=== PATIENT | male | born 1955 | race American Indian/Alaskan Native ===

== ENCOUNTER 2016-12-22 13:57 | Emergency (ER) | payer MEDICAID ==
[2016-12-22 14:17] VITALS: BMI 34.8
[2016-12-22 14:34] VITALS: RESP 18; O2SAT 98
--- NOTE | 2016-12-22 14:36 | C.PDOC ---
History Of Present Illness 61 y/o M p/w dizziness last night. Patient states dizziness is like a spinning sensation. Occurred last night whenever patient rotated his head to the L. Resolved if turned head the other way. Denies headache, vomiting, trauma, vision change, numbness, weakness. Symptoms are now gone as of 4 hours ago and have not returned. Time Seen by Provider: 12/22/16 14:04 Chief Complaint (Nursing): Dizziness/Lightheaded Past Medical History Vital Signs: Last Vital Signs Temp 98.3 F 12/22/16 14:24 Pulse 63 12/22/16 14:24 Resp 18 12/22/16 14:24 BP 111/71 12/22/16 14:24 Pulse Ox 98 12/22/16 14:24 - Medical History PMH: Benign Prostatic Hyperplasia, Cardia Arrhythmia, Colonic Polyps, Depression , Gastritis, HTN, Hypercholesterolemia Denies: Chronic Kidney Disease Surgical History: Endoscopy - [facility] Procedures COLONOSCOPY (04/30/14) CYSTOSCOPY NEC (08/19/14) ENDOSCOPIC CONTROL OF GASTRIC OR DUODENAL BLEEDING (03/18/14) ESOPHAGOGASTRODUODENOSCOPY [EGD] W/CLOSED BIOPSY (06/25/14) INFLUENZA VACCINATION (12/10/13) INSERT INDWELLING CATH (06/28/14) OTH TRANSURETHRAL PROSTATECTOMY (05/28/13) VACCINATION NEC (12/10/13) Family History: States: Unknown Family Hx - Social History Hx Tobacco Use: No Hx Alcohol Use: Yes Hx Substance Use: Yes - Immunization History Hx Tetanus Toxoid Vaccination: No Hx Influenza Vaccination: No Hx Pneumococcal Vaccination: No Review Of Systems Except As Marked, All Systems Reviewed And Found Negative. Eyes: Negative for: Vision Change ENT: Negative for: Ear Pain Physical Exam - Physical Exam Additional Physical Exam Comments: General: NAD. Head: NC/AT. ENT: MMM. TMs normal. Neck: Supple. No midline tenderness. Card: Regular rate. Lungs: CTA b/l. Abdomen: Soft, NT, ND Extremities: No tenderness. Neuro: AAOx3. CN II to XII intact. Motor 5/5 x 4. Sensation to light touch intact. FTN, HTS normal. Gait steady. ED Course And Treatment O2 Sat by Pulse Oximetry: 98 Medical Decision Making Medical Decision Making: Symptoms consistent with BPPV. Meclizine prescribed if occurs again. Instructed to follow up with ENT. Instructed to return to the ED immediately for any headache especially if worst headache of life, numbness, weakness, vision change , intractible dizziness. Disposition - Disposition Referrals: Kaleb Dale MD [Staff Provider] - Disposition: HOME/ ROUTINE Disposition Time: 14:34 Condition: STABLE Prescriptions: Meclizine [Antivert] 25 mg PO TID PRN #20 tab PRN Reason: Dizziness Instructions: Benign Paroxysmal Positional Vertigo (ED) - Clinical Impression Clinical Impression: BPPV (benign paroxysmal positional vertigo)
[2016-12-22 14:46] VITALS: BP 110/70; PULSE 68; TEMP 98
== END 2016-12-22 14:45 | disposition home or self-care (01) ==
LOC: C.ER 13:57
DX: H81.10 Benign paroxysmal vertigo, unspecified ear (principal); I10 Essential (primary) hypertension; E78.00 Pure hypercholesterolemia, unspecified

== ENCOUNTER 2017-06-29 12:38 | Emergency (ER) | payer MEDICAID ==
[2017-06-29 12:38] VITALS: BMI 34.8
[2017-06-29 12:58] VITALS: PULSE 60; RESP 20
--- NOTE | 2017-06-29 13:23 | C.PDOC ---
History Of Present Illness 61 year old male presents to the ER after he was running away from a dog and twisted his right ankle and leg yesterday. Denies weakness, numbness, or any other injuries. Time Seen by Provider: 06/29/17 13:05 Chief Complaint (Nursing): Lower Extremity Problem/Injury History Per: Patient History/Exam Limitations: no limitations Onset/Duration Of Symptoms: Days Current Symptoms Are (Timing): Still Present Recent travel outside of the [place]: No - Ankle/Foot Description Of Injury: Twisted Past Medical History Reviewed: Historical Data, Nursing Documentation, Vital Signs Vital Signs: Last Vital Signs Temp 97.8 F 06/29/17 14:50 Pulse 60 06/29/17 14:50 Resp 20 06/29/17 14:50 BP 151/90 H 06/29/17 14:50 Pulse Ox 100 06/29/17 14:50 - Medical History PMH: Benign Prostatic Hyperplasia, Cardia Arrhythmia, Colonic Polyps, Depression , Gastritis, HTN, Hypercholesterolemia Surgical History: Endoscopy - [facility] Procedures COLONOSCOPY (04/30/14) CYSTOSCOPY NEC (08/19/14) ENDOSCOPIC CONTROL OF GASTRIC OR DUODENAL BLEEDING (03/18/14) ESOPHAGOGASTRODUODENOSCOPY [EGD] W/CLOSED BIOPSY (06/25/14) INFLUENZA VACCINATION (12/10/13) INSERT INDWELLING CATH (06/28/14) OTH TRANSURETHRAL PROSTATECTOMY (05/28/13) VACCINATION NEC (12/10/13) Family History: States: Unknown Family Hx - Social History Hx Tobacco Use: No Hx Alcohol Use: Yes Hx Substance Use: Yes - Immunization History Hx Tetanus Toxoid Vaccination: No Hx Influenza Vaccination: No Hx Pneumococcal Vaccination: No Review Of Systems Musculoskeletal: Positive for: Leg Pain, Foot Pain Neurological: Negative for: Weakness, Numbness Physical Exam - Physical Exam Appears: Non-toxic, No Acute Distress Skin: Normal Color, Warm, Dry Head: Atraumatic, Normacephalic Eye(s): bilateral: Normal Inspection Extremity: Capillary Refill (<2 seconds), No Deformity, Other (Swelling and tenderness to the right lateral malleolus) Pulses: Left Dorsalis Pedis: Normal, Right Dorsalis Pedis: Normal Neurological/Psych: Oriented x3, Normal Speech, Normal Motor, Normal Sensation ED Course And Treatment O2 Sat by Pulse Oximetry: 99 (Room air) Pulse Ox Interpretation: Normal - Other Rad right tibia/fibula x-ray X-Ray: Viewed By Me, Read By Radiologist Interpretation: IMPRESSION: Unremarkable radiographs of the right tibia and fibula. right ankle x-ray X-Ray: Viewed By Me, Read By Radiologist Interpretation: IMPRESSION: Normal right ankle radiographs. Medical Decision Making Medical Decision Making: Right ankle x-ray and right tibia/fibula x-ray ordered, results were negative. Motrin and tylenol administered with relief. Patient is ambulatory in the ER with no pain or discomfort, will discharge home with Rx and instructions to follow up with PMD or return if symptoms worsen. Disposition - Disposition Referrals: Lg Baldwin III, MD [Staff Provider] - [facility] [Outside] Disposition: HOME/ ROUTINE Disposition Time: 14:42 Condition: GOOD Additional Instructions: Follow up with the Orthopedist within 1-2 weeks. Return if worsened Prescriptions: Ibuprofen [Motrin] 600 mg PO TID #21 tab traMADol/Acetaminophen [Ultracet 325 MG-37.5 MG] 1 tab PO Q8 PRN #15 tab PRN Reason: Pain, Severe (8-10) Instructions: Ankle Sprain Forms: [employer] (Japanese) - Clinical Impression Clinical Impression: Ankle sprain - PA / MATERIAL MOVER / Resident Statement MD/DO has reviewed & agrees with the documentation as recorded. - Scribe Statement The provider has reviewed the documentation as recorded by the Scribe Jose Jc All medical record entries made by the Scribe were at my direction and personally dictated by me. I have reviewed the chart and agree that the record accurately reflects my personal performance of the history, physical exam, medical decision making, and the department course for this patient. I have also personally directed, reviewed, and agree with the discharge instructions and disposition.
--- NOTE | 2017-06-29 14:04 | RAD ---
PROCEDURE: Right Ankle Radiographs. HISTORY: ankle twisted, pain COMPARISON: None FINDINGS: BONES: Normal. No fracture. JOINTS: Normal. No osteoarthritis. Ankle mortise maintained. Talar dome intact SOFT TISSUES: Normal. OTHER FINDINGS: None. IMPRESSION: Normal right ankle radiographs.
--- NOTE | 2017-06-29 14:05 | RAD ---
PROCEDURE: Radiographs of the right tibia and fibula. HISTORY: Injury, pain. COMPARISON: None available. TECHNIQUE: Frontal and lateral views obtained. FINDINGS: BONES: No fracture or destructive lesion. JOINT SPACES: Unremarkable. OTHER FINDINGS: None. IMPRESSION: Unremarkable radiographs of the right tibia and fibula.
[2017-06-29 14:50] VITALS: BP 151/90; TEMP 97.8
[2017-06-29 23:36] VITALS: O2SAT 99
== END 2017-06-29 15:03 | disposition home or self-care (01) ==
LOC: C.ER 12:38
DX: S93.401A Sprain of unspecified ligament of right ankle, initial encounter (principal); X50.1XXA Overexertion from prolonged static or awkward postures, initial encounter; Y93.02 Activity, running; Y92.89 Other specified places as the place of occurrence of the external cause

== ENCOUNTER 2018-01-17 10:56 | Emergency (ER) | payer MEDICAID ==
[2018-01-17 10:57] VITALS: BMI 34.8
[2018-01-17 11:14] VITALS: BP 135/85; PULSE 54; RESP 18; TEMP 98.1; O2SAT 98
--- NOTE | 2018-01-17 12:26 | C.PDOC ---
History Of Present Illness 62 year old male presents to the ED for foreign body removal. Patient states he has a Q-tip stuck in his right ear. He denies ear drainage, hearing loss. Time Seen by Provider: 01/17/18 12:02 Chief Complaint (Nursing): Foreign Body History Per: Patient History/Exam Limitations: None Onset/Duration Of Symptoms: Hrs Current Symptoms Are (Timing): Still Present Past Medical History Reviewed: Historical Data, Nursing Documentation, Vital Signs Vital Signs: Last Vital Signs Temp 98.1 F 01/17/18 11:10 Pulse 54 L 01/17/18 11:10 Resp 18 01/17/18 11:10 BP 135/85 01/17/18 11:10 Pulse Ox 98 01/17/18 11:10 - Medical History PMH: Benign Prostatic Hyperplasia, Cardia Arrhythmia, Colonic Polyps, Depression, Gastritis, HTN, Hypercholesterolemia Denies: Chronic Kidney Disease Surgical History: Endoscopy - [facility] Procedures COLONOSCOPY (04/30/14) CYSTOSCOPY NEC (08/19/14) ENDOSCOPIC CONTROL OF GASTRIC OR DUODENAL BLEEDING (03/18/14) ESOPHAGOGASTRODUODENOSCOPY [EGD] W/CLOSED BIOPSY (06/25/14) INFLUENZA VACCINATION (12/10/13) INSERT INDWELLING CATH (06/28/14) OTH TRANSURETHRAL PROSTATECTOMY (05/28/13) VACCINATION NEC (12/10/13) Family History: States: Unknown Family Hx - Social History Hx Tobacco Use: No Hx Alcohol Use: Yes (denies) Hx Substance Use: Yes - Immunization History Hx Tetanus Toxoid Vaccination: No Hx Influenza Vaccination: No Hx Pneumococcal Vaccination: No Review Of Systems ENT: Positive for: Other (foreign body in right ear ). Negative for: Ear Discharge Physical Exam - Physical Exam Appears: Non-toxic, No Acute Distress Skin: Normal Color, Warm, Dry Head: Atraumatic, Normacephalic Ear(s): Left: Normal, Right: Other (cotton q-tip visualized ) Extremity: Normal ROM Neurological/Psych: Oriented x3, Normal Speech, Normal Cognition ED Course And Treatment O2 Sat by Pulse Oximetry: 98 (on RA) Pulse Ox Interpretation: Normal Progress Note: Cotton Q-tip removed from right ear with forceps by me. TM intact post-procedure. Patient tolerated well with no complications. On reassessment, patient is resting comfortably and reports relief of symptoms. Patient is stable for discharge. Disposition - Disposition Disposition: HOME/ ROUTINE Disposition Time: 12:25 Condition: STABLE Additional Instructions: Follow up with your PMD as needed. Return to ED if feel worse. Instructions: Removing Objects Stuck in the Ear Forms: [employer] (Hungarian) - Clinical Impression Clinical Impression: Ear foreign body - PA / LIFE SCIENCES TEACHER / Resident Statement MD/DO has reviewed & agrees with the documentation as recorded. - Scribe Statement The provider has reviewed the documentation as recorded by the Scribe (Tamika Spears) All medical record entries made by the Scribe were at my direction and personally dictated by me. I have reviewed the chart and agree that the record accurately reflects my personal performance of the history, physical exam, medical decision making, and the department course for this patient. I have also personally directed, reviewed, and agree with the discharge instructions and disposition. Procedures - FB Removal Ear Right Foreign Body Location: Ear Canal Right Foreign Body Suspected: Other (cotton Q-tip ) Foreign Body Removed: Yes Foreign Body Removal Technique: Forceps Patient Tolorated Procedure: Well, No Complications Complications: None
== END 2018-01-17 12:30 | disposition home or self-care (01) ==
LOC: C.ER 10:56
DX: T16.1XXA Foreign body in right ear, initial encounter (principal); X58.XXXA Exposure to other specified factors, initial encounter; Y92.9 Unspecified place or not applicable

== ENCOUNTER 2018-02-08 10:57 | Observation (INO) | payer MEDICAID ==
[2018-02-08 10:57] VITALS: BMI 34.8
--- NOTE | 2018-02-08 12:06 | C.PDOC ---
History Of Present Illness 62 y/o male presents to ED with c/o chest tightness since today and right leg paresthesia radiating to back of leg intermittently for 3 days. Patient states last episode of chest tightness was 1 week ago. Patient also c/o ears feeling clogged and denies sob, nausea, vomiting, headache, dizziness or any other complaints at this time. Time Seen by Provider: 02/08/18 11:38 Chief Complaint (Nursing): Weakness/Neurological Deficit History Per: Patient History/Exam Limitations: no limitations Onset/Duration Of Symptoms: Days Current Symptoms Are (Timing): Still Present Past Medical History Reviewed: Historical Data, Nursing Documentation, Vital Signs Vital Signs: Last Vital Signs Temp 98 F 02/08/18 11:01 Pulse 56 L 02/08/18 11:01 Resp 18 02/08/18 11:01 BP 144/88 02/08/18 11:01 Pulse Ox 96 02/08/18 11:01 - Medical History PMH: Benign Prostatic Hyperplasia, Cardia Arrhythmia, Colonic Polyps, Depression, Gastritis, HTN, Hypercholesterolemia Surgical History: Endoscopy - [facility] Procedures COLONOSCOPY (04/30/14) CYSTOSCOPY NEC (08/19/14) ENDOSCOPIC CONTROL OF GASTRIC OR DUODENAL BLEEDING (03/18/14) ESOPHAGOGASTRODUODENOSCOPY [EGD] W/CLOSED BIOPSY (06/25/14) INFLUENZA VACCINATION (12/10/13) INSERT INDWELLING CATH (06/28/14) OTH TRANSURETHRAL PROSTATECTOMY (05/28/13) VACCINATION NEC (12/10/13) Family History: States: No Known Family Hx - Social History Hx Tobacco Use: No Hx Alcohol Use: Yes (denies) Hx Substance Use: Yes - Immunization History Hx Tetanus Toxoid Vaccination: No Hx Influenza Vaccination: No Hx Pneumococcal Vaccination: No Review Of Systems Except As Marked, All Systems Reviewed And Found Negative. Constitutional: Negative for: Fever, Chills Cardiovascular: Positive for: Chest Pain Respiratory: Negative for: Cough, Shortness of Breath Gastrointestinal: Negative for: Nausea, Vomiting Musculoskeletal: Positive for: Leg Pain (paresthesia) Physical Exam - Physical Exam Additional Physical Exam Comments: Constitutional: No acute distress. Head: Normocephalic. Atraumatic. Eyes: PERRL. ENT: Moist mucous membranes. Neck: Supple. Cardiovascular: Regular rate. Radial pulse 2+ bilaterally. Chest: No tenderness. Respiratory: Clear to auscultation bilaterally. GI: Soft. Nontender. Nondistended. Back: No CVA tenderness. Musculoskeletal: No tenderness or swelling of extremities. Skin: No rash. Neurologic: Alert, no focal deficit. ED Course And Treatment - Laboratory Results Result Diagrams: 02/08/18 12:24 12 12:24 ECG: Interpreted By Me, Viewed By Me ECG Rhythm: Sinus Rhythm Rate From EC (BPM) O2 Sat by Pulse Oximetry: 96 (RA) Pulse Ox Interpretation: Normal Medical Decision Making Medical Decision Making: Plan: ECG, CXR, Blood work ordered, Aspirin administered. ECG: NSR @55BPM, No ST/T wave changes CXR no acute disease. Dr. Bhatti accepts patient to medical service, recommends Dr. Langston cardiology university controller for consult. Disposition - Disposition Disposition: HOSPITALIZED Disposition Time: 13:45 Condition: FAIR Forms: [facility] (Albanian) - POA Core Measure Indicators: Chest Pain - Clinical Impression Clinical Impression: Chest pain - Scribe Statement The provider has reviewed the documentation as recorded by the Scribdarrius Graves All medical record entries made by the Scribe were at my direction and personally dictated by me. I have reviewed the chart and agree that the record accurately reflects my personal performance of the history, physical exam, medical decision making, and the department course for this patient. I have also personally directed, reviewed, and agree with the discharge instructions and disposition.
[2018-02-08 12:28] LABS: BASO % 0.8 % (0.0-2.0); EOS # 0.1 K/uL (0.0-0.7); EOS % 2.3 % (0.0-4.0); LYMPH # 1.5 K/uL (1.0-4.3); LYMPH % 25.8 % (20.0-40.0); MEAN CORPUSCULAR HEMOGLOBIN 22.4 pg (27.0-31.0); MEAN CORPUSCULAR HGB CONC 32.3 g/dL (33.0-37.0); MEAN PLATELET VOLUME 9.3 fL (7.2-11.7); MONO # 0.7 K/uL (0.0-0.8); MONO % 11.7 % (0.0-10.0); NEUT # 3.4 K/uL (1.8-7.0); NEUT % 59.4 % (50.0-75.0); NRBC % 0.2 % (0.0-2.0); RBC 5.79 Mil/uL (4.40-5.90); WHITE BLOOD COUNT 5.6 K/uL (4.8-10.8)
[2018-02-08 12:35] LABS: MEAN CELL VOLUME 69.4 fL (80.0-94.0)
[2018-02-08 12:41] LABS: ALB/GLOB RATIO 1.2 (1.0-2.1); ALBUMIN 4.2 g/dL (3.5-5.0); BLOOD UREA NITROGEN 13 mg/dL (9-20); CALCIUM 8.9 mg/dl (8.6-10.4); GFR NON-AFRICAN AMERICAN > 60; LIPASE 51 U/L (23-300)
[2018-02-08 12:54] LABS: CK-MB 0.54 ng/mL (0.0-3.38)
[2018-02-08 13:24] LABS: ALT/SGPT 57 U/L (21-72); AST/SGOT 66 U/L (17-59)
--- NOTE | 2018-02-08 15:01 | RAD ---
Date of service: 02/08/2018 HISTORY: chest pain COMPARISON: 04/14/2015 FINDINGS: LUNGS: The lungs are well inflated and clear. PLEURA: No pleural effusions or pneumothorax. CARDIOVASCULAR: The heart is normal in size. No aortic atherosclerotic calcification present. OSSEOUS STRUCTURES: Within normal limits for the patient's age. VISUALIZED UPPER ABDOMEN: Normal. OTHER FINDINGS: None. IMPRESSION: No active pulmonary disease.
--- NOTE | 2018-02-08 19:29 | CP.PCM.HP ---
History of Present Illness - History of Present Illness History of Present Illness: pt came to ed feeling chest tight and closing on him Present on Admission - Present on Admission Any Indicators Present on Admission: No Review of Systems - Review of Systems Systems not reviewed;Unavailable: Acuity of Condition - Constitutional Constitutional: Fatigue - EENT Eyes: As Per HPI Ears: As Per HPI Nose/Mouth/Throat: As Per HPI - Cardiovascular Cardiovascular: Chest Pain at Rest, Lightheadedness - Respiratory Respiratory: Dyspnea on Exertion - Gastrointestinal Gastrointestinal: As Per HPI - Genitourinary Genitourinary: As Per HPI - Musculoskeletal Musculoskeletal: As Per HPI - Integumentary Integumentary: Change in Nails - Psychiatric Psychiatric: As Per HPI - Endocrine Endocrine: As Per HPI - Hematologic/Lymphatic Hematologic: As Per HPI Past Patient History - Infectious Disease Hx of Infectious Diseases: None - Tetanus Immunizations Tetanus Immunization: Unknown - Past Medical History & Family History Past Medical History?: Yes - Past Social History Smoking Status: Heavy Smoker > 10 Cigarettes Daily - CARDIAC Hx Cardia Arrhythmia: Yes Hx Hypercholesterolemia: Yes Hx Hypertension: Yes - PULMONARY Hx Respiratory Disorders: No - NEUROLOGICAL Hx Neurological Disorder: No - HEENT Hx HEENT Problems: Yes Hx Glaucoma: Yes Other/Comment: uses bifocal eyeglasses - RENAL Hx Chronic Kidney Disease: No - ENDOCRINE/METABOLIC Hx Endocrine Disorders: No - HEMATOLOGICAL/ONCOLOGICAL Hx Blood Disorders: No - INTEGUMENTARY Hx Dermatological Problems: No Hx Psoriasis: Yes - MUSCULOSKELETAL/RHEUMATOLOGICAL Hx Falls: No - GASTROINTESTINAL Hx Gastritis: Yes - GENITOURINARY/GYNECOLOGICAL Hx Genitourinary Disorders: Yes (PROSTATE PROBLEMS) Hx Hematuria: Yes Hx Prostate Problems: Yes Other/Comment: FREQUENCY - PSYCHIATRIC Hx Depression: Yes Hx Substance Use: Yes - SURGICAL HISTORY Hx Surgeries: Yes Other/Comment: PROSTATE SURGERY (CYSTOSCOPY?). ER RECORD SHOWS:OTH TRANSURETERAL PROSTATECTOMY- PT NOT SURE WHAT HE HAD DONE. - ANESTHESIA Hx Anesthesia: Yes Hx Anesthesia Reactions: No Hx Malignant Hyperthermia: No Meds Allergies/Adverse Reactions: Allergies Allergy/AdvReac Type Severity Reaction Status Date / Time crab Allergy Verified 06/29/17 12:58 shellfish derived Allergy Verified 06/29/17 12:58 shrimp AdvReac ANAPHYLAXIS Verified 06/29/17 12:58 Physical Exam - Constitutional Appears: Non-toxic - Head Exam Head Exam: ATRAUMATIC - Eye Exam Eye Exam: Normal appearance, PERRL - ENT Exam ENT Exam: Normal Exam - Neck Exam Neck exam: Positive for: Normal Inspection - Respiratory Exam Respiratory Exam: Decreased Breath Sounds - Cardiovascular Exam Cardiovascular Exam: REGULAR RHYTHM - GI/Abdominal Exam GI & Abdominal Exam: Normal Bowel Sounds - Rectal Exam Rectal Exam: Deferred - Exam Exam: NORMAL INSPECTION External exam: NORMAL EXTERNAL EXAM - Extremities Exam Extremities exam: Positive for: normal inspection - Back Exam Back exam: NORMAL INSPECTION - Neurological Exam Neurological exam: Alert, Oriented x3 - Psychiatric Exam Psychiatric exam: Normal Affect - Skin Skin Exam: Normal Color Results - Vital Signs Recent Vital Signs: Last Vital Signs Temp 98.2 F 02/08/18 15:07 Pulse 52 L 02/08/18 15:07 Resp 14 02/08/18 15:07 BP 150/81 02/08/18 15:07 Pulse Ox 98 02/08/18 15:07 - Labs Result Diagrams: 02/08/18 12:24 02/08/18 12:24 Labs: Laboratory Results - last 24 hr 02/08/18 02/08/18 02/08/18 11:30 12:24 12:24 WBC 5.6 RBC 5.79 Hgb 13.0 Hct 40.2 MCV 69.4 L D MCH 22.4 L MCHC 32.3 L RDW 17.0 H Plt Count 161 MPV 9.3 Neut % (Auto) 59.4 Lymph % (Auto) 25.8 [place] % (Auto) 11.7 H Eos % (Auto) 2.3 Baso % (Auto) 0.8 Neut # (Auto) 3.4 Lymph # (Auto) 1.5 [place] # (Auto) 0.7 Eos # (Auto) 0.1 Baso # (Auto) 0.0 Differential Comment Sodium 134 Potassium 4.7 Chloride 100 Carbon Dioxide 25 Anion Gap 13 BUN 13 Creatinine 0.8 Est GFR ( Amer) > 60 Est GFR (Non-Af Amer) > 60 POC Glucose (mg/dL) 105 Random Glucose 106 Calcium 8.9 Total Bilirubin 0.9 AST 66 H ALT 57 Alkaline Phosphatase 67 Total Creatine Kinase 89 CK-MB (Mass) 0.54 Troponin I < 0.0120 Total Protein 7.7 Albumin 4.2 Globulin 3.4 Albumin/Globulin Ratio 1.2 Lipase 51 Assessment & Plan - Assessment and Plan (Free Text) Assessment: ac chest htn overweght no change in ekg Plan: will keep moniter and cardiology evaluation and echo - Date & Time Date: 02/08/18 Time: 19:31
[2018-02-08 20:05] LABS: CK-MB 0.49 ng/mL (0.0-3.38)
[2018-02-09 01:04] VITALS: RESP 20
--- NOTE | 2018-02-09 04:28 | CON ---
DATE: 02/08/2018 CARDIOLOGY CONSULTATION REQUESTED BY: Kaylee Bhatti MD LOCATION: Presently in room 671, bed-B. HISTORY OF PRESENT ILLNESS: I was requested to see this 62-year-old black male who was admitted via emergency room complaining of some localized pain in the right costal rib area for several days, sometimes it is worse when he moves. He denies any shortness of breath, any dizziness, sweating, palpitations, or syncope. At this point in time, he feels relatively well. The only problem is that he has some "problem with his ears" and at times when he moves his head, he gets dizzy. He told me he asked the emergency room to look into his ears. PAST MEDICAL HISTORY: Includes hypertension as well as prostate hypertrophy. Taking atenolol as well as tamsulosin and another medication he did not recognize the name, he claims that it is for his prostate also. He is under the care of a physician in the area, did not recognize the physician's name either. REVIEW OF SYSTEMS: CARDIOPULMONARY: From the cardiopulmonary view point relatively negative without any exertional chest discomfort, no evidence of any significant pain or shortness of breath. No PND or orthopnea. GASTROINTESTINAL: As mentioned. MUSCULOSKELETAL: Some pain in the right lower anterior rib cage area perhaps in the subcostal area in the right upper abdomen, no mass felt. He is obese. Rest of the review of systems is otherwise negative. PHYSICAL EXAMINATION: GENERAL: Alert, oriented. Appears in no distress whatsoever. He moves around without any problems. VITAL SIGNS: Totally stable. Blood pressure totally normal, 120 to 130 over 70. Pulse regular at 78 per minute. Respiratory rate unremarkable. He appears afebrile. Telemetry appears unremarkable also. SKIN: Warm and dry. No evidence of cyanosis. No edema. HEAD, EARS, NOSE, AND THROAT: Normal for his age. NECK: Supple. No lymphadenopathy or thyromegaly. CHEST: Totally clear to auscultation. Precordium unremarkable. Right chest area in the lower ribcage appears some kind of tenderness when you palpate, but no mass, skin lesion, skin eruptions, or any abnormalities noted. The upper right subcostal area, no masses, no evidence of any significant pain in that area either on deep palpation. CARDIOPULMONARY: Heart sounds normal intensity and regular without any obvious gallops or murmurs at this point in time. ABDOMEN: Obese as mentioned above. CENTRAL NERVOUS SYSTEM: Unremarkable. LABORATORY DATA: From the cardiological view point, initial troponin is negative. CBC with some microcytic indices. Hemoglobin is normal, perhaps stool for occult blood should be considered down the road. Electrolytes . Chest x-ray, heart sounds normal in size. No obvious infiltrates. No effusion. EKG: I looked everywhere. I am sure it was done. I have been unable to find it. I am sure we will eventually via the electronic medical records. IMPRESSION: 1. Atypical chest pain, appears noncardiac at this point in time. 2. Hypertension, very well controlled. 3. Perhaps some sort of inner ear issues, some positional vertigo. 4. Upper gastrointestinal pathology cannot be excluded. SUGGESTIONS: At this point in time, we are going to watch him on telemetry. Obviously, we are awaiting serial troponins as well as EKGs, and we will proceed accordingly. At this point in time, Mr. Gan appears to be very very stable. All Langston MD
[2018-02-09] MEDS ORDERED: Influenza Vaccine 60 MCG/0.5 ML SYR (3 yr & up) IM ONE (10:00)
--- NOTE | 2018-02-09 10:37 | CP.PCM.PN ---
Subjective - Date & Time of Evaluation Date of Evaluation: 02/09/18 Time of Evaluation: 10:35 - Subjective Subjective: less chest pain today had echo don result pending Objective - Vital Signs/Intake and Output Vital Signs (last 24 hours): Temp Pulse Resp BP Pulse Ox 97.8 F 54 L 20 152/86 H 96 02/09/18 08:23 02/09/18 08:23 02/09/18 08:23 02/09/18 08:23 02/09/18 08:23 - Medications Medications: Current Medications Aspirin (Ecotrin) 81 mg PO DAILY [facility] Last Admin: 02/09/18 10:15 Dose: 81 mg Heparin Sodium (Porcine) (Heparin) 5,000 units SC Q12 [facility] Last Admin: 02/09/18 10:16 Dose: 5,000 units Tamsulosin HCl (Flomax) 0.4 mg PO DAILY [facility] Last Admin: 02/09/18 10:15 Dose: 0.4 mg - Labs Labs: 02/08/18 12:24 02/08/18 12:24 - Constitutional Appears: Non-toxic - Head Exam Head Exam: NORMAL INSPECTION - Eye Exam Eye Exam: Normal appearance Pupil Exam: NORMAL ACCOMODATION - ENT Exam ENT Exam: Mucous Membranes Moist - Neck Exam Neck Exam: Normal Inspection - Respiratory Exam Respiratory Exam: NORMAL BREATHING PATTERN - Cardiovascular Exam Cardiovascular Exam: REGULAR RHYTHM - GI/Abdominal Exam GI & Abdominal Exam: Normal Bowel Sounds - Exam Exam: NORMAL INSPECTION - Extremities Exam Extremities Exam: Normal Capillary Refill - Back Exam Back Exam: NORMAL INSPECTION - Neurological Exam Neurological Exam: Alert, Normal Gait, Oriented x3 - Skin Skin Exam: Normal Color Assessment and Plan - Assessment and Plan (Free Text) Assessment: chest pain improving htn over weight will f/u echo and d/c soon Plan: f/uecho
--- NOTE | 2018-02-09 19:23 | CARD ---
APPROVED REPORT Date of service: 02/09/2018 EXAM: Two-dimensional and M-mode echocardiogram with Doppler and color Doppler. Other Information Quality : GoodRhythm : INDICATION Abnormal EKG/Arrhythmia Chest Pain RISK FACTORS Hypertension Obesity Hyperlipidemia Smoking 2D DIMENSIONS IVSd1.8 (0.7-1.1cm)LVDd5.2 (3.9-5.9cm) PWd1.6 (0.7-1.1cm)LA Jfwvbg23 (18-58mL) LVDs3.2 (2.5-4.0cm)FS (%) 39.0 % LVEF (%)69.0 (>50%)LVEF (Knox's)72.31 % M-Mode DIMENSIONS Left Atrium (MM)3.49 (2.5-4.0cm)IVSd1.99 (0.7-1.1cm) Aortic Root3.71 (2.2-3.7cm)LVDd5.46 (4.0-5.6cm) Aortic Cusp Exc.2.29 (1.5-2.0cm)PWd1.40 (0.7-1.1cm) FS (%) 34 %LVDs3.58 (2.0-3.8cm) TAPSE17.57 cmLVEF (%)67 (>50%) Mitral Valve MV E Udkpymxg35.3cm/sMV A Kuffrkgp81.2cm/sE/A ratio0.9 TDI Lateral E' Peak V8.09cm/sMedial E' Peak V7.13cm/sE/Lateral E'6.8 E/Medial E'7.8 Tricuspid Valve TR Peak [id number]/sTR Peak Gr.[id number] LEFT VENTRICLE The left ventricle is normal size. There is normal left ventricular wall thickness. There is normal LV segmental wall motion. Transmitral Doppler flow pattern is abnormal. RIGHT VENTRICLE The right ventricle is normal size. ATRIA The left atrium size is normal. The right atrium size is normal. AORTIC VALVE The aortic valve is normal in structure. MITRAL VALVE The mitral valve is normal in structure. TRICUSPID VALVE There is mild tricuspid regurgitation. <Conclusion> Normal LV systolic function. Diastolic dysfunction. Normal chamber size. Mild TR.
--- NOTE | 2018-02-09 23:43 | CARD ---
APPROVED REPORT Date of service: 02/08/2018 EKG Measurement Heart [id number] ID [id number] <Conclusion> Sinus bradycardia Left anterior fascicular block Left ventricular hypertrophy with QRS widening Nonspecific ST and T wave abnormality Abnormal ECG
--- NOTE | 2018-02-09 23:56 | CARD ---
APPROVED REPORT Date of service: 02/08/2018 EKG Measurement Heart [id number] MA [id number] <Conclusion> Sinus bradycardia Left anterior fascicular block Abnormal ECG
--- NOTE | 2018-02-09 23:57 | CARD ---
APPROVED REPORT Date of service: 02/08/2018 EKG Measurement Heart [id number] <Conclusion> Sinus bradycardia Left axis deviation Left ventricular hypertrophy with QRS widening Abnormal ECG
[2018-02-10 08:06] VITALS: BP 104/68; PULSE 56; TEMP 98; O2SAT 98
--- NOTE | 2018-02-10 09:31 | CP.PCM.PN ---
Subjective - Date & Time of Evaluation Date of Evaluation: 02/10/18 Time of Evaluation: 09:29 - Subjective Subjective: pt feels good no chest pain or sob Objective - Vital Signs/Intake and Output Vital Signs (last 24 hours): Temp Pulse Resp BP Pulse Ox 98.0 F 56 L 20 104/68 98 02/10/18 07:00 02/10/18 07:00 02/10/18 07:00 02/10/18 07:00 02/10/18 08:54 - Medications Medications: Current Medications Aspirin (Ecotrin) 81 mg PO DAILY [facility] Last Admin: 02/09/18 10:15 Dose: 81 mg Heparin Sodium (Porcine) (Heparin) 5,000 units SC Q12 [facility] Last Admin: 02/09/18 22:19 Dose: 5,000 units Tamsulosin HCl (Flomax) 0.4 mg PO DAILY [facility] Last Admin: 02/09/18 10:15 Dose: 0.4 mg - Labs Labs: 02/08/18 12:24 02/08/18 12:24 - Constitutional Appears: Non-toxic - Head Exam Head Exam: NORMAL INSPECTION - Eye Exam Eye Exam: Normal appearance Pupil Exam: NORMAL ACCOMODATION - ENT Exam ENT Exam: Normal Exam - Neck Exam Neck Exam: Full ROM - Respiratory Exam Respiratory Exam: Clear to Ausculation Bilateral - Cardiovascular Exam Cardiovascular Exam: REGULAR RHYTHM - Rectal Exam Rectal Exam: NORMAL INSPECTION - Exam Exam: NORMAL INSPECTION - Extremities Exam Extremities Exam: Normal Inspection - Back Exam Back Exam: NORMAL INSPECTION - Neurological Exam Neurological Exam: Alert, Normal Gait, Oriented x3 - Psychiatric Exam Psychiatric exam: Normal Affect - Skin Skin Exam: Normal Color Assessment and Plan - Assessment and Plan (Free Text) Assessment: chest pain nonspescific htn diastolic dysfunction Plan: stable will d/c to his md care
== END 2018-02-10 11:13 | disposition home or self-care (01) ==
LOC: C.ER 10:57 → C.9E 14:12 → C.6T 14:48
PROVIDERS: ADMIT Internal Medicine; ATTEND Internal Medicine
DX: R07.89 Other chest pain (principal); I10 Essential (primary) hypertension; F17.219 Nicotine dependence, cigarettes, with unspecified nicotine-induced disorders; N40.0 Benign prostatic hyperplasia without lower urinary tract symptoms; H40.9 Unspecified glaucoma; E78.00 Pure hypercholesterolemia, unspecified
CPT/HCPCS: 36415; 71045; 80053; 82550; 82553; 82948; 83690; 84484; 85025; 90471; 90674; 93005; 93306; 99285; G0378; J1644